=== PATIENT | male | born 1990 | race Two or more races ===

== ENCOUNTER 2019-11-12 14:22 | Emergency (ER) | payer BC, OTHER ==
[~2019-11-12] VITALS: Ht 154.9 cm; Wt 68.0 kg
[2019-11-12 14:59] LABS: Basophils # (auto) 0 10 ^3/uL (0-0.2); Basophils % (auto) 0.5 % (0.0-2.0); Eosinophils # (auto) 0 10 ^3/uL (0-0.8); Eosinophils % (auto) 0.1 % (0.0-7.0); Hematocrit 46.2 % (41.0-53.0); Hemoglobin 15.7 g/dL (13.5-17.5); Lymphocytes # (auto) 1.9 10 ^3/uL (0.4-5.4); Lymphocytes % (auto) 22.4 % (10.0-50.0); Mean Corpuscular Hemoglobin 30.1 pg (28.0-32.0); Mean Corpuscular Hgb Conc. 33.9 g/dL (32.0-36.0); Mean Corpuscular Volume 88.7 fL (80.0-100.0); Monocytes # (auto) 0.6 10 ^3/uL (0-1.3); Monocytes % (auto) 7.5 % (0.0-12.0); Neutrophils # (auto) 5.8 10 ^3/uL (1.6-8.6); Neutrophils % (auto) 69.5 % (37.0-80.0); Platelet Count (auto) 238 10^3/uL (140-450); Red Blood Cells 5.21 10^6/uL (4.5-5.90); Red Cell Distribution Width 13.7 % (11.8-14.3); White Blood Cell 8.4 10^3/uL (4.4-10.8)
[2019-11-12 15:15] LABS: Albumin 4.5 g/dL (3.4-5.0); Anion Gap 5 (5-15); Blood Urea Nitrogen 12 mg/dL (7-18); Calcium 9.4 mg/dL (8.5-10.1); Carbon Dioxide 29 mmol/L (21-32); Chloride 103 mmol/L (98-107); Glucose 122 mg/dL (74-106); Potassium 3.9 mmol/L (3.5-5.1); Sodium 137 mmol/L (136-145)
[2019-11-12 15:22] LABS: BUN/Creatinine Ratio 13.6; GFR African American 133 mL/min; GFR Non-African American 110 mL/min
[2019-11-12 15:23] LABS: Alanine Aminotransferase 36 U/L (16-61); Alkaline Phosphatase 97 U/L (45-117); Aspartate Aminotransferase 19 U/L (15-37); Bilirubin, Total 0.6 mg/dL (0.2-1.0); Total Protein 8.5 g/dL (6.4-8.2)
[2019-11-12 16:15] VITALS: BP 144/81
== END 2019-11-12 16:17 | disposition home or self-care (01) ==
LOC: ER 14:22
DX: R00.2 Palpitations (principal); F12.10 Cannabis abuse, uncomplicated
CPT/HCPCS: 36415; 71046; 80053; 84484; 85025; 93005